=== PATIENT | female | born 1995 | race Two or more races ===

== ENCOUNTER 2024-05-01 09:05 | Day surgery (SDC) | payer BC, MEDICAID, SELFPAY ==
[2024-04-29 09:27] VITALS: BMI 25.0
[2024-04-29 10:21] LABS: HCG Qualitative,Urine Negative
[2024-05-01] VITALS (7 sets, daily range): BP systolic 105–123; BP diastolic 66–87; PULSE 70–78; RESP 14–20; TEMP 36.2–36.5; O2SAT 95–98; BMI 25.6
[2024-05-01] MEDS: OXYMETAZOLINE NAS SPRY 0.05% 15 ML BTL 3 SPRAY NASAL (10:34)
[2024-05-01] MEDS: RINGERS LACTATED 1000 ML 1,000 ML 20 ML IV (10:36)
--- NOTE | 2024-05-01 12:09 | PD.SUROPNT ---
Date of Procedure 05/01/24 Pre Op Diagnosis Nasal septal deviation with obstruction Bilateral inferior turbinate hypertrophy Post Op Diagnosis Nasal septal deviation with obstruction Bilateral inferior turbinate hypertrophy Procedure Septoplasty Bilateral submucous resection of the inferior turbinates Findings Deviated septum to the left with enlarged inferior turbinates Procedure Description Indications this is a 28-year-old female with chronic nasal congestion with the above findings. Treatment options were discussed as well as surgical risk occluding bleeding infection nasal deformity and potential need for further surgery. She understood this as well as anticipated outcomes and wished to proceed. Patient was transferred to the operative suite where she is anesthetized intubated per LMA. Patient was sterilely draped and a timeout performed. Nasal septum as well as the inferior turbinates were injected with 1% lidocaine with 1 100,000 Sanjeev epinephrine. Approximately 5 cc total were used. Caudal rim incision was then made on the left side of the septum mucosal flap elevated off the septal cartilage and bone and anterior tunnel created. Perpendicular plate was then from the quadrangular cartilage and mucosal flap elevated off the right side of the perpendicular plate. Double-action scissors were used to incise the perpendicular plate and the deviated portions were removed with a Jag forceps. This allowed the septum return near midline. The mucosal flaps were then reapproximated to the underlying cartilage with a 4-0 plain gut suture in a quilting type stitch. This was used to close the rim incision as well. Inferior turbinates were then reduced in submucosal plane with a 2.9 mm turbinate shaver blade. Dissection was performed on insertion and withdrawal first on the left side and then the right side. Entry sites were cauterized with suction cautery. Patient was then awakened and taken recovery room in stable condition Anesthesia other (General Per LMA) Pathology / specimen None Estimated Blood Loss 5 Surgeon Niraj Marcelo DO Surgical Staff Operation Date: 05/01/24 15:45 Case Staff Anesthesiologist: Buzz Pastrana
--- NOTE | 2024-05-01 12:18 | SUR.PHASEI ---
1218: Pt. AAOx4, vitals stable, breathing unlabored, no complaint of pain or nausea, dressing below nose is CDI, no active bleed noted, report received from MD Pastrana and Bautista ROCK.
--- NOTE | 2024-05-01 13:10 | SUR.PHASEII ---
1310: Pt. AAOx4, vitals stable, breathing unlabored, no complaint of pain or nausea, dressing under nose is CDI, no active bleed noted, pt. tolerated sips of water well, pt. ambulated to wheelchair with steady gait and no assist, no complications. Gave discharge instructions to the pt. and her ride, both verbalized understanding and had no further questions. Pt. left with all personal belongings.
== END 2024-05-01 13:10 | disposition home or self-care (01) ==
PROVIDERS: PCP Family Medicine; Referring Provider Otolaryngology; Visit Provider Otolaryngology
PROC: (CPT 30520; principal; 2024-05-01 15:30)
DX: J34.2 Deviated nasal septum (principal); J34.3 Hypertrophy of nasal turbinates
CPT/HCPCS: 30520; 30140; 81025; A4217; A4649; J0690; J1100; J2704; J2765; J3010; J3490; J7040; J7120; A9270